=== PATIENT | female | born 2005 | race Caucasian/White ===

== ENCOUNTER 2023-12-12 13:47 | Emergency (ER) | payer OTHER ==
[2023-12-12] MEDS ORDERED: IBUPROFEN 400 MG TABLET (FP) PO ONE (14:07)
[2023-12-12] MEDS: IBUPROFEN 400 MG TABLET (FP) PO ONE (14:10)
[2023-12-12 14:20] VITALS: BP 110/60; PULSE 72; RESP 16; TEMP 98.4; BMI 20.7
== END 2023-12-12 16:35 | disposition home or self-care (01) ==
LOC: FER 13:47
DX: S93.401A Sprain of unspecified ligament of right ankle, initial encounter (principal); W10.9XXA Fall (on) (from) unspecified stairs and steps, initial encounter; X50.1XXA Overexertion from prolonged static or awkward postures, initial encounter; Y99.0 Civilian activity done for income or pay
CPT/HCPCS: 72170-TC-FY; 73610-TC-RT-FY; 73630-TC-RT-FY; 99284-25